=== PATIENT | female | born 1940 | race Two or more races ===

== ENCOUNTER → 2016-04-29 | Outpatient (CLI) | payer MEDICARE, OTHER ==
--- NOTE | 2016-04-29 14:41 | RADRPT ---
PROCEDURE: XR pelvis/right hip. CLINICAL INDICATION: Hip pain TECHNIQUE: AP pelvis/AP and lateral right hip views performed COMPARISON: No prior studies are available for comparison. FINDINGS: There is moderate to severe bilateral hip osteoarthrosis. This is associated with joint space narrow ing, subchondral sclerosis and osteophytosis. There is normal mineralization. No fractures or osse ous lesions are identified. The soft tissues are unremarkable. IMPRESSION: Moderate to severe bilateral hip osteoarthrosis. RPTAT: HGDB .Cholo Rueda MD, MD Date Time Electronically viewed and signed by .Cholo Rueda MD, on 04/29/2016 14:41 .B/
== END | disposition home or self-care (01) ==
LOC: HKI 14:08
PROVIDERS: ATTEND Orthopaedic Surgery
DX: M16.0 Bilateral primary osteoarthritis of hip (principal); M25.551 Pain in right hip
CPT/HCPCS: 73502; G0463

== ENCOUNTER → 2016-06-08 | Outpatient (CLI) | payer MEDICARE, OTHER | END | disposition home or self-care (01) | LOC: HKI 09:54 | PROVIDERS: ATTEND Orthopaedic Surgery | DX: Z01.818 Encounter for other preprocedural examination (principal); M16.11 Unilateral primary osteoarthritis, right hip; M25.551 Pain in right hip | CPT/HCPCS: G0463 ==

== ENCOUNTER 2016-06-14 05:50 | Inpatient (IN) | payer MEDICARE, OTHER ==
[2016-06-13 09:42] VITALS: BMI 29.4
[~2016-06-14] VITALS: Ht 170.2 cm; Wt 85.7 kg
[2016-06-14] VITALS (20 sets, daily range): BP systolic 90–140; BP diastolic 39–66; PULSE 54–62; RESP 8–20; Ht 170.2 cm; Wt 85.7 kg
[2016-06-14] MEDS: LACTATED RINGER'S 1,000 ML IV SCH ×4 (05:00→17:39)
[~2016-06-14 05:50] MED LIST: BUPIVACAINE LIPOSOME/PF 266 MG/20 ML VIAL INFIL ONE; CEFAZOLIN 2GM/50 ML (PMX) 50 ML X1 BEFORE INCISION IVPB ONE; CELECOXIB 400 MG PO X1 DOSE PO ONE; EXPAREL NOTE (BUPIVICAINE LIPOSOMAL) XX SCH; PAIN COCKTAIL-CEFUROXIME IRR ONE; PREGABALIN 300 MG PO X1 PO ONE; TRANEXAMIC ACID 850 MG in SOD CHLORIDE 0.9% 100 ML IVPB ONE; TRANEXAMIC ACID 850 MG in SOD CHLORIDE 0.9% 91.5 ML IV ONE; oxyCODONE (CR) 10 MG TAB [oxyCONTIN] X1 DOSE PO ONE; traMADOL 50 MG TAB X 1 DOSE PO ONE
[2016-06-14] MEDS ORDERED: ESOM40CA PO (06:34)
[2016-06-14] MEDS ORDERED: ATEN1TAB3 PO (06:34)
[2016-06-14] MEDS ORDERED: CRES10 PO (06:51)
[2016-06-14] MEDS ORDERED: FOLI-49 PO (06:51)
[2016-06-14] MEDS ORDERED: ICOS1CAP PO (06:51)
[2016-06-14] MEDS ORDERED: ESCI20TA PO (06:51)
[2016-06-14] MEDS ORDERED: AMLO1TAB12 PO (06:51)
[2016-06-14] MEDS ORDERED: MET25 PO (06:51)
[2016-06-14] MEDS ORDERED: QUET50TA16 PO (06:51)
[2016-06-14] MEDS ORDERED: DONE5TAB7 PO (06:51)
[2016-06-14] MEDS ORDERED: LUTE20CA PO (06:51)
[2016-06-14] MEDS ORDERED: METF500T4 PO (06:51)
[2016-06-14] MEDS ORDERED: CLOP300T15 PO (06:51)
[2016-06-14] MEDS ORDERED: ALLO300T2 PO (06:51)
[2016-06-14] MEDS ORDERED: MEMA28CA PO (06:51)
[2016-06-14] MEDS ORDERED: PRED5 PO ×2 (06:51→09:45)
[2016-06-14] MEDS ORDERED: PROP225T PO (06:51)
[2016-06-14] MEDS ORDERED: PROPOFOL 200 MG INJ ONE (07:00)
[2016-06-14] MEDS ORDERED: SODIUM CL BACTERIOSTATIC 30 ML INJ ONE (07:05)
[2016-06-14] MEDS ORDERED: POLYMYXIN B 500000 UNIT INJ ONE (07:05)
[2016-06-14] MEDS ORDERED: VANCOMYCIN 1 GM INJ ONE (07:05)
[2016-06-14] MEDS ORDERED: GLYCOPYRROLATE 1 MG INJ ONE (07:07)
[2016-06-14] MEDS ORDERED: ETOMIDATE 20 MG INJ ONE (07:07)
[2016-06-14] MEDS ORDERED: NEOSTIGMINE 3 MG/3 ML SYRINGE ONE (07:07)
[2016-06-14] MEDS ORDERED: ONDANSETRON 4 MG INJ ONE (07:07)
[2016-06-14] MEDS ORDERED: LIDOCAINE 100 MG SYRINGE ONE (07:07)
[2016-06-14] MEDS ORDERED: MIDAZOLAM 1 MG/ML 2 ML INJ ONE (07:07)
[2016-06-14] MEDS ORDERED: CEFAZOLIN 1 GM INJ ONE (07:07)
[2016-06-14] MEDS ORDERED: FENTAnyl 50 MCG/ML VIAL ONE (07:07)
[2016-06-14] MEDS ORDERED: PROPOFOL 100 ML ONE (07:07)
[2016-06-14] MEDS ORDERED: DEXAMETHASONE 4 MG/ML 1 ML INJ ONE (07:08)
--- NOTE | 2016-06-14 07:08 | HPN ---
Date/Time of Note Date/Time of Note DATE: 06/14/16 TIME: 07:07 Interval H&P Admission Note Pt. seen H&P reviewed: No system changes No changes from H&P on 06/06/16 by JORDAN Schneider MD Jun 14, 2016 07:08
[2016-06-14] MEDS ORDERED: BACITRACIN 50000 UNITS INJ IRR ONE (08:19)
[2016-06-14] MEDS ORDERED: LABETALOL HCL 20MG INJ IV PRN (08:30)
[2016-06-14] MEDS ORDERED: EPHEDrine SULFATE 50 MG/5 ML SYG IV PRN (08:30)
[2016-06-14] MEDS ORDERED: MIDAZOLAM 1 MG/ML 2 ML INJ IV PRN (08:30)
[2016-06-14] MEDS ORDERED: DIPHENHYDRAMINE 50 MG INJ IV PRN (08:30)
[2016-06-14] MEDS ORDERED: hydrALAzine 20 MG INJ IV PRN (08:30)
[2016-06-14] MEDS ORDERED: HYDROmorphONE (0.2 MG/ML) 10ML SYG IV PRN ×3 (08:30)
[2016-06-14] MEDS ORDERED: TRIMETHOBENZAMIDE 100 MG/ML VIAL IM PRN (08:30)
[2016-06-14] MEDS ORDERED: FENTAnyl 50 MCG/ML VIAL IV PRN ×3 (08:30)
[2016-06-14] MEDS ORDERED: MEPERIDINE 25 MG INJ IV PRN (08:30)
[2016-06-14] MEDS ORDERED: ONDANSETRON 4 MG INJ IV PRN ×2 (08:30→10:00)
--- NOTE | 2016-06-14 09:39 | RADRPT ---
PROCEDURE: Intraoperative imaging of the right hip with fluoroscopy. CLINICAL INDICATION: Right hip pain. Intraoperative. TECHNIQUE: 17 images of the right hip were obtained in the operating room with an image intensifie r. No radiologist was in attendance. 0.5 minutes of fluoroscopy time was used. COMPARISON: 04/29/2016. FINDINGS: Images demonstrate placement of a total right hip arthroplasty. IMPRESSION: 1. Satisfactory intraoperative imaging of the right hip. RPTAT: QQ .Willie Villar MD, MD Date Time Electronically viewed and signed by .Willie Villar MD, MD on 06/14/2016 09:39 .R/
[2016-06-14 09:49] LABS: HEMATOCRIT 28.5 % (37.0-47.0); HEMOGLOBIN 9.5 g/dl (12.0-16.0)
[2016-06-14] MEDS ORDERED: HYDROmorphONE 1 MG/ML SYG IV PRN (10:00)
[2016-06-14] MEDS ORDERED: oxyCODONE 5 MG TAB PO PRN ×2 (10:00)
[2016-06-14] MEDS ORDERED: ASPIRIN (EC) 325 MG TAB PO ONE (10:00)
[2016-06-14] MEDS ORDERED: NA PHOSPHATE/BIPHOS 133 ML ENEMA PR PRN (10:00)
[2016-06-14] MEDS ORDERED: NACL 0.9% 3 ML SYG IV SCH (10:00)
[2016-06-14] MEDS ORDERED: MAGNESIUM HYDROXIDE 30ML CUP PO PRN (10:00)
[2016-06-14] MEDS ORDERED: BISACODYL 10 MG SUPP PR PRN (10:00)
[2016-06-14] MEDS: CEFAZOLIN 2 GM/50 ML (PMX) 50 ML IVPB SCH ×2 (10:05→18:19)
--- NOTE | 2016-06-14 10:07 | PN ---
Date/Time of Note Date/Time of Note DATE: 06/14/16 TIME: 10:00 Assessment/Plan Lines/Catheters IV Catheter Type (from Nrsg): Peripheral IV Assessment/Plan Assessment/Plan Stable in PACU, s/p right anterior EBER -continue antibiotics -pain meds as needed -ASA/SCDs for DVT prophylaxis -OOB with PT -check AM labs -monitor drain -d/c amaro in AM XR of the right hip is pending at this time Subjective 24 Hr Interval Summary Doing well in PACU. Drowsy from anesthesia. Denies pain. Obeying all commands. Exam/Review of Systems Vital Signs Vitals Vital Signs Date Time Temp Pulse Resp B/P Pulse Ox O2 Delivery O2 Flow Rate FiO2 06/14/16 09:45 54 8 92/42 94 Nasal Cannula 2.0 06/14/16 09:42 97.9 Exam Free Text/Dictation Dressing dry Incision clean, dry, and intact without redness or drainage 5/5 Quadriceps, Tibialis Anterior, EHL, Gastroc, Soleus, Peroneals Normal sensation Palpable DT/PT, CR <2 sec No distal edema Results Result Diagram: 06/14/16 0940 DAISY HESTER PA-C Jun 14, 2016 10:07
[2016-06-14 10:17] LABS: POTASSIUM 3.5 mmol/L (3.5-5.1)
[2016-06-14 10:18] LABS: CALCIUM 8.6 mg/dl (8.4-10.2); CREATININE 1.02 mg/dl (0.44-1.00)
--- NOTE | 2016-06-14 10:26 | OPR ---
DATE OF OPERATION: 06/14/2016 PREOPERATIVE DIAGNOSIS: Right hip osteoarthritis. POSTOPERATIVE DIAGNOSIS: Right hip osteoarthritis. OPERATION PERFORMED: Right anterior total hip arthroplasty. SURGEON: Jordan Flowers MD FIRESETTER: LISA Zhu COMPONENTS USED: DePuy size 56 mm Gription Charlotte cup, 56/36 neutral AltrX polyethylene liner, si ze 12 standard Corail stem, 36 +1.5 ceramic head. ANESTHESIA: Spinal plus general endotracheal intubation, plus periarticular injection. ANESTHESIOLOGIST: Campbell Delvalle MD ESTIMATED BLOOD LOSS: 300 mL. INTRAVENOUS FLUIDS: 2100 mL crystalloid. SPECIMENS: Femoral head. DRAINS: Hemovac x1. COMPLICATIONS: None. DISPOSITION: The patient tolerated the procedure well and was taken to the recovery room in stable condition. INDICATIONS: The patient is a 76-year-old woman who has had progressive worsening pain in the [facility] t hip with radiographic evidence of severe osteoarthritis. She has failed nonsurgical means of quentin tment to control her pain including activity modifications, pain medications and ambulatory assist d evices. Despite these measures, she has had worsening pain and I felt she would benefit from a tota l hip arthroplasty through an anterior approach. . The risks, benefits, and alternatives of the procedure were explained in detail to the patient. I e xplained the risks of the surgery to include, but not be limited to: bleeding and possible need for blood transfusion; infection; pain; stiffness; neurovascular injury with possible numbness, weakness , and/or paralysis anywhere from the hip down to the toes; fracture; instability; dislocation; leg l ength inequality; wear and/or loosening of the prosthesis and possible need for future revision; blo od clots; pulmonary embolism; and anesthetic complications such as heart attack, stroke, GI bleed, p neumonia, and/or . Ample time was allowed for the patient to ask questions, all of which were addressed and answered. The patient understood the risks involved and wished to proceed. Informed c onsent was signed prior to the procedure. PROCEDURE: The patient's right hip was initialed with a marking pen in the preoperative area to iden tify the correct operative site. The patient was brought to the operating room and transferred from the [facility] to the [facility] where a spinal anesthetic was administered. The patient was then anesthetized and intubated. A Lr catheter was placed. Both feet were placed into well padd ed boots which were then placed into the leg holders of the traction booms. A timeout was performed to confirm that the right side was the correct operative site. The patient was given 2 g of intrav enous Ancef within one hour prior to the procedure. The operative hip was prepped and draped in the usual sterile fashion. A 10 cm oblique incision was made over the anterior aspect of the hip and carried down through subcu taneous tissue and fat with sharp dissection. The tensor fascia carloz was incised along the length o f the wound. The tensor fascia muscle was retracted laterally and the sartorius medially. The anter ior circumflex vessels were identified and tied off with 2-0 silk suture and coagulated with the [employer] manager. The rectus femoris was elevated off the anterior capsule and an anterior capsu lectomy performed. A femoral neck osteotomy was made and the head removed from the acetabulum. The acetabulum was denuded of cartilage circumferentially, as was the femoral head. Retractors were pl aced around the acetabulum. The remnants of the labrum and ligamentum teres were excised. I reamed the acetabulum to the medial wall and then went into an anatomic position and increased the reamer size in 2 mm increments until I got a good bite and was down to bleeding subchondral bone. The Charlotte cup was opened and impacted into the acetabulum and sat flush circumferentially, gettin g a good bite. C-arm imaging showed it had about 40 to 45 degrees of abduction and 20 degrees of ant eversion. The real liner was opened and impacted into the acetabulum and sat flush circumferentiall y. Attention was turned towards the femur. The operative leg was carefully lowered to the floor with the leg adducted. The foot was then exter chago rotated to approximately 110 degrees. A posteromedial release was performed to optimize expos ure. The femoral hook was placed underneath the proximal femur and the hydraulic lift was then used to elevate the femur up out of the wound. The judith cutter osteotome was used to remove the remai roxy overhanging greater trochanter. The femur was then broached, going up in one size increments u ntil it sat flush with the neck cut and a stable fit was achieved. The trial neck and head were ass embled and reduced into the acetabulum. Fluoroscopic imaging showed the components to be in good pos ition and the leg lengths and offsets to be equal. At this point, the trial was dislocated and the trial broach removed. The canal was irrigated and d ried. The real stem was opened and impacted into the femur. The trunnion was irrigated and dried, a nd the real femoral head was impacted onto the trunnion, and reduced into the acetabulum. The soft tissues were infiltrated with a mixture of 150 mg of 0.5% Bupivacaine, 8 mg of Duramorph, 3 00 mcg of epinephrine, 30 mg of Toradol, 100 mcg of clonidine, 750 mg of cefuroxime and 86 mL of nor mal saline, followed by an injection of 266 mg of liposomal Bupivacaine. At this point the hip was irrigated with a mixture of Betadine/saline and then antibiotic saline with pulsatile lavage. A Hem ovac drain was placed in the deep portion of the wound and brought out the anterolateral thigh. Ther e was good hemostasis. The tensor fascia carloz was repaired with a running #1 Vicryl. The deep fat layer was irrigated and closed with 2-0 Stratafix and the subcutaneous layer closed with 3-0 Vicryl and the skin was closed with art and then sealed with Dermabond. The drain was secured with 3-0 nylon. The sponge and needle counts were correct at the end of the case. The wound was covered with an occ lusive dressing. The patient was awakened, extubated, and taken to the recovery room in stable cond ition. Dictated By: JORDAN ROBLES/DEANNA Conf#: [id number] DID#: [id number]
--- NOTE | 2016-06-14 10:44 | RADRPT ---
PROCEDURE: XR Pelvis. CLINICAL INDICATION: Recent right hip arthroplasty TECHNIQUE: Single AP view of the pelvis. COMPARISON: 04/29/2016 FINDINGS: There is a recent right hip arthroplasty in place with anatomic alignment. No acute fracture or dis location is seen. Postsurgical skin art, soft tissue drain, and soft tissue gas is seen. Remai nder of the pelvis appears intact without evidence of fractures or dislocation. Moderate osteoarthr itis is seen at the left hip joint.. Sacroiliac joints and pubic symphysis are unremarkable. IMPRESSION: Recent right hip arthroplasty. Moderate osteoarthritis of the left hip. RPTAT: VV .Tomas Ayala MD, MD Date Time Electronically viewed and signed by .Tomas Ayala MD, on 06/14/2016 10:43 .L/
--- NOTE | 2016-06-14 10:46 | RADRPT ---
PROCEDURE: Right hip series CLINICAL INDICATION: Right hip arthroplasty TECHNIQUE: Single AP view of the right hip is submitted COMPARISON: 06/14/2016 FINDINGS: There has been recent right hip arthroplasty with anatomic alignment. No evidence of fractures or d islocation.. Postsurgical changes with skin art, soft tissue drain and soft tissue gas are prese nt. Visualized portions of the pelvis are intact. IMPRESSION: Recent right hip arthroplasty. RPTAT: VV .Tomas Ayala MD, MD Date Time Electronically viewed and signed by .Tomas Ayala MD, MD on 06/14/2016 10:45 .L/
[2016-06-14] MEDS ORDERED: DIPHENHYDRAMINE 25 MG CAP PO PRN (11:13)
--- NOTE | 2016-06-14 12:14 | OPR ---
Date/Time of Note Date/Time of Note DATE: 06/14/16 TIME: 12:13 Operative Report Free Text/Dictation Dictation # [id number] Procedure Date: Jun 14, 2016 Preoperative Diagnosis Right Hip OA Postoperative Diagnosis Same Surgeon: JORDAN CHAMORRO MD computer assistant: DAISY HESTER PA-C Anesthesia: general, spinal Anesthesiologist: Campbell Delvalle M.D. Estimated Blood Loss: 250 - 300 ml's Specimens Femoral Head Tubes/Drains Hemovac x 1 Complications: None Pt Condition Post Procedure: stable Disposition: PACU JORDAN CHAMORRO MD Jun 14, 2016 12:14
[2016-06-14] MEDS ORDERED: TRANEXAMIC ACID 860 MG in SOD CHLORIDE 0.9% 100 ML IVPB ONE ×2 (13:00→16:00)
[2016-06-14] MEDS: ACETAMINOPHEN 1000MG/100ML IV 100 ML IVPB SCH ×2 (13:18→18:15)
[2016-06-14] MEDS: traMADol 50 MG TAB PO SCH ×2 (13:21→17:40)
[2016-06-14] MEDS: AMLODIPINE 2.5 MG TAB PO SCH ×2 (13:25→21:09)
[2016-06-14] MEDS: ATENOLOL 25 MG TAB PO SCH ×2 (13:26→21:09)
[2016-06-14] MEDS ORDERED: DEXTROSE 50% 50 ML SYRINGE IV PRN ×2 (13:30)
[2016-06-14] MEDS ORDERED: GLUCOSE GEL 15 GRAM TUBE BUCCAL PRN (13:30)
[2016-06-14] MEDS ORDERED: GLUCAGON 1 MG INJ IM PRN (13:30)
[2016-06-14] MEDS ORDERED: GLUCOSE GEL 15 GRAM TUBE PO PRN ×2 (13:30)
--- NOTE | 2016-06-14 14:11 | CONS ---
DATE OF ADMISSION: 06/14/2016 DATE OF CONSULTATION: 06/14/2016 POSTOPERATIVE MEDICAL CONSULTATIVE NOTE Dear Dr. Flowers: Thank you very much for allowing me to evaluate the above patient who just underwent right total hip replacement. HISTORICAL EVENTS: As you well know, this patient has had progressive disabling pain involving her right knee and elected to proceed with surgery. Postoperatively via my discussion with the family, as she does not speak Polish, she is comfortable and has not complained of shortness of breath, cou gh, wheezing, nausea, vomiting, abdominal or chest pain. PAST MEDICAL HISTORY INCLUDES: 1. Degenerative arthritis. 2. Depression. 3. Impaired cognition. 4. History of asthma. 5. History of type 2 diabetes. 6. Hypertension. SOCIAL HISTORY: Does not smoke. ALLERGIES: NONE. MEDICATIONS: 1. Allopurinol 300 per day. 2. Amlodipine 5 mg per day. 3. Atenolol/chlorthalidone 50/25 one per day. 4. Benazepril 5 mg per day. 7. Folic acid 1 mg per day. 8. Lexapro 10 mg per day. 9. Metformin 500 mg b.i.d. 10. Namenda XR 28 mg daily. 11. Omeprazole 20 per day. 12. Plavix 75 mg per day. 13. Prednisolone 5 per day. 14. Crestor 20 mg per day. 15. Rythmol 150 mg daily. 16. Seroquel 50 mg per day. 17. Vascepa 1 gram b.i.d. PHYSICAL EXAMINATION: GENERAL: Reveals a comfortable-appearing female in no acute distress. VITAL SIGNS: BP 120/80, pulse 70, respirations 20, she was afebrile. EYES: Extraocular muscles were full. NOSE, MOUTH, AND THROAT: Normal. NECK: Supple. There was no jugular venous distention, thyroid enlargement or adenopathy. LUNGS: Clear. HEART: Rhythm regular, I/ systolic murmur. No third or fourth sound. ABDOMEN: Nontender. Liver and spleen were not palpable. No masses or tenderness were noted. EXTREMITIES: No edema. NEUROLOGIC: No lateralizing motor weakness. IMPRESSION: 1. Stable postoperative right hip replacement. 2. History of hypertension, to continue antihypertensive therapy and monitor BP throughout. 3. Will evaluate daily for signs and symptoms of thromboembolic disease despite an appropriate deep venous thrombosis prophylaxis. 4. History of rheumatoid arthritis to continue prednisone daily. Dictated By: WILMAN SMITH MD MR/DEANNA Conf#: [id number] DID#: [id number]
[2016-06-14] MEDS ORDERED: BACITRACIN 50000 UNITS INJ ONE (15:14)
[2016-06-14] MEDS: INSULIN ASPART [NOVOLOG] 3 ML PEN SC SCH (17:30)
[2016-06-14] MEDS: PANTOPRAZOLE (EC) 40 MG TAB PO SCH (17:39)
[2016-06-14] MEDS: ATORVASTATIN 40 MG TAB PO SCH (21:09)
[2016-06-14] MEDS: PREGABALIN 25 MG CAP PO SCH (21:09)
[2016-06-14] MEDS: MEMANTINE 10 MG TAB PO SCH (21:09)
[2016-06-14] MEDS: NITROFURANTOIN (SR) 100 MG CAP PO SCH (21:10)
[2016-06-14] MEDS: DOCUSATE SODIUM 100 MG CAP PO SCH (21:10)
[2016-06-15] VITALS: BP 122/58; PULSE 77; RESP 18
[2016-06-15] MEDS: ACETAMINOPHEN 1000MG/100ML IV 100 ML IVPB SCH ×2 (00:23→04:53)
[2016-06-15] MEDS: traMADol 50 MG TAB PO SCH ×5 (00:23→23:16)
[2016-06-15] MEDS: LACTATED RINGER'S 1,000 ML IV SCH ×6 (00:41→21:00)
[2016-06-15] MEDS: CEFAZOLIN 2 GM/50 ML (PMX) 50 ML IVPB SCH (01:40)
[2016-06-15] MEDS: PANTOPRAZOLE (EC) 40 MG TAB PO SCH ×2 (04:53→17:49)
[2016-06-15 05:26] VITALS: BP 134/62; PULSE 67; RESP 19
[2016-06-15 06:14] LABS: PHOSPHORUS 3.7 mg/dl (2.5-4.9)
[2016-06-15 06:15] LABS: MAGNESIUM 1.3 mg/dl (1.7-2.5)
[2016-06-15 06:19] LABS: CALCIUM 8.5 mg/dl (8.4-10.2); CREATININE 1.28 mg/dl (0.44-1.00)
[2016-06-15] MEDS: INSULIN ASPART [NOVOLOG] 3 ML PEN SC SCH ×3 (07:30→17:54)
--- NOTE | 2016-06-15 08:05 | PN ---
Date/Time of Note Date/Time of Note DATE: 06/15/16 TIME: 08:02 Assessment/Plan VTE Prophylaxis VTE Prophylaxis Intervention: other Lines/Catheters IV Catheter Type (from Nrs): Peripheral IV Urinary Cath still in place: Yes Reason Cath still needed: urinary retention Assessment/Plan Assessment/Plan 1. S/P right hip replacement, doing well 2. Mild acute renal failure likely sec to vol depletion 3. Anemia, reasonable to transfuse 2 units if ok with ortho 4. Hx elev BP, controlled (without ARB) 5. Low mag, will replete Subjective 24 Hr Interval Summary Respiratory: No shortness of breath Cardiovascular: No edema Gastrointestinal: no complaints Genitourinary: other (foely in place) Musculoskeletal: bone/joint pain (mild right hip pain) Exam/Review of Systems Vital Signs Vitals Vital Signs Date Time Temp Pulse Resp B/P Pulse Ox O2 Delivery O2 Flow Rate FiO2 06/15/16 05:26 98.5 67 19 134/62 99 Nasal Cannula 2.0 Intake and Output 06/14/16 06/14/16 06/15/16 15:00 23:00 07:00 Intake Total 2708.5 ml 1500 ml Output Total 545 ml 1000 ml Balance 2163.5 ml 500 ml Exam Neck: No jvd Respiratory: clear to auscultation Cardiovascular: regular rate and rhythm Gastrointestinal: soft Extremities: No edema (and no calf tend) Results Result Diagram: 06/15/16 0525 06/15/16 0525 Results 24 hrs Laboratory Tests Test 06/14/16 09:40 06/14/16 10:08 06/14/16 17:35 06/15/16 05:25 Anion Gap 17 H 16 Blood Urea Nitrogen 23 H 25 H Calcium Level 8.6 8.5 Carbon Dioxide Level 27 25 Chloride Level 102 97 Creatinine 1.02 H 1.28 H Glucose Level 91 147 # Hematocrit 28.5 L 24.0 L Hemoglobin 9.5 L 8.0 L Potassium Level 3.5 4.0 Sodium Level 142 134 L Bedside Glucose 93 201 Magnesium Level 1.3 L Phosphorus Level 3.7 Medications Medications Current Medications Lactated Ringer's (Lr) 1,000 ml @ 100 mls/hr Q10H IV ; Start 06/14/16 at 05:00 Miscellaneous Information 1 ea NOTE XX ; Start 06/14/16 at 05:00; Stop 06/18/16 at 04:59 Donepezil HCl (Aricept) 5 mg DAILY PO ; Start 06/15/16 at 09:00 Escitalopram Oxalate (Lexapro) 20 mg DAILY PO ; Start 06/15/16 at 09:00 Propafenone HCl (Rythmol) 150 mg DAILY PO ; Start 06/15/16 at 09:00 Quetiapine Fumarate (Seroquel) 50 mg DAILY PO ; Start 06/15/16 at 09:00 Memantine (Namenda) 10 mg BID PO Last administered on 06/14/16 21:09; Admin Dose 10 MG; Start 06/14/16 at 21:00 Atorvastatin Calcium 40 mg 40 mg QHS PO Last administered on 06/14/16 21:09; Admin Dose 40 MG; Start 06/14/16 at 21:00 Lactated Ringer's 1,000 ml @ 125 mls/hr Q8H IV Last administered on 06/15/16 01:41; Admin Dose 125 MLS/HR; Start 06/14/16 at 09:33 Acetaminophen (Ofirmev 1000mg/ 100ml Iv) 100 ml @ 400 mls/hr Q6 IVPB Last administered on 06/15/16 04:53; Admin Dose 400 MLS/HR; Start 06/14/16 at 12:00 ; Stop 06/15/16 at 11:59 Tramadol HCl (Ultram) 50 mg Q6 PO Last administered on 06/15/16 04:54; Admin Dose 50 MG; Start 06/14/16 at 12:00; Stop 06/17/16 at 11:59 Oxycodone HCl (Roxicodone) 5 mg Q4H PRN PO PAIN LEVEL 1-3; Start 06/14/16 at 10 :00 Oxycodone HCl (Roxicodone) 10 mg Q4H PRN PO PAIN LEVEL 4-7; Start 06/14/16 at 10:00 Hydromorphone HCl (Dilaudid) 1 mg Q3H PRN IV PAIN LEVEL 8-10; Start 06/14/16 at 10:00 Ondansetron HCl (Zofran Inj) 4 mg Q6H PRN IV NAUSEA AND/OR VOMITING; Start at 10:00 Bisacodyl (Dulcolax Supp) 10 mg Q12H PRN [place] CONSTIPATION; Start 06/14/16 at 10: 00 Magnesium Hydroxide (Milk Of Mag) 30 ml BID PRN PO CONSTIPATION; Start at 10:00 Sodium Biphosphate/ Sodium Phosphate (Fleet Enema) 133 ml DAILY PRN [place] CONSTIPATION; Start 06/14/16 at 10:00 Docusate Sodium (Colace) 100 mg BID PO Last administered on 06/14/16 21:10; Admin Dose 100 MG; Start 06/14/16 at 21:00 Diphenhydramine HCl (Benadryl) 25 mg Q6H PRN PO PRURITUS; Start 06/14/16 at 11: 13 Aspirin (Ecotrin) 325 mg BID PO ; Start 06/15/16 at 09:00 Pregabalin (Lyrica) 50 mg BID PO Last administered on 06/14/16 21:09; Admin Dose 50 MG; Start 06/14/16 at 21:00 Pantoprazole (Protonix Tab) 40 mg BID@,18 PO Last administered on 06/15/16 04:53; Admin Dose 40 MG; Start 06/14/16 at 18:00 Nitrofurantoin Macrocrystals (Macrobid) 100 mg BID PO Last administered on 06/14 21:10; Admin Dose 100 MG; Start 06/14/16 at 21:00 Prednisone (Prednisone) 5 mg DAILY PO ; Start 06/15/16 at 09:00 Allopurinol (Zyloprim) 300 mg DAILY PO ; Start 06/15/16 at 09:00 Amlodipine Besylate (Norvasc) 2.5 mg BID PO Last administered on 06/14/16 21: 09; Admin Dose 2.5 MG; Start 06/14/16 at 13:30 Atenolol (Tenormin) 25 mg BID PO Last administered on 06/14/16 21:09; Admin Dose 25 MG; Start 06/14/16 at 13:30 Escitalopram Oxalate (Lexapro) 10 mg DAILY PO ; Start 06/15/16 at 09:00 Miscellaneous Information 1 ea NOTE XX ; Start 06/14/16 at 13:30 Glucose (Glutose) 15 gm Q15M PRN PO DECREASED GLUCOSE; Start 06/14/16 at 13:30 Glucose (Glutose) 22.5 gm Q15M PRN PO DECREASED GLUCOSE; Start 06/14/16 at 13: 30 Dextrose (D50w Syringe) 25 ml Q15M PRN IV DECREASED GLUCOSE; Start 06/14/16 at 13:30 Dextrose (D50w Syringe) 50 ml Q15M PRN IV DECREASED GLUCOSE; Start 06/14/16 at 13:30 Glucagon (Glucagen) 1 mg Q15M PRN IM DECREASED GLUCOSE; Start 06/14/16 at 13:30 Glucose (Glutose) 15 gm Q15M PRN BUCCAL DECREASED GLUCOSE; Start 06/14/16 at 13 :30 WILMAN SMITH MD Jun 15, 2016 08:05
[2016-06-15 08:20] VITALS: BP 137/63; RESP 18
[2016-06-15] MEDS ORDERED: QUETIAPINE 25 MG TAB PO SCH (09:00)
[2016-06-15] MEDS: NITROFURANTOIN (SR) 100 MG CAP PO SCH ×2 (09:00→20:12)
[2016-06-15] MEDS: DOCUSATE SODIUM 100 MG CAP PO SCH ×2 (09:00→20:12)
[2016-06-15] MEDS ORDERED: ESCITALOPRAM 10 MG TAB PO SCH (09:00)
[2016-06-15] MEDS: PREGABALIN 25 MG CAP PO SCH ×2 (09:01→20:06)
[2016-06-15] MEDS: AMLODIPINE 2.5 MG TAB PO SCH ×2 (09:01→20:10)
[2016-06-15] MEDS: metFORMIN 500 MG TAB PO SCH (09:02)
[2016-06-15] MEDS: ALLOPURINOL 300 MG TAB PO SCH (09:02)
[2016-06-15] MEDS: ASPIRIN (EC) 325 MG TAB PO SCH ×2 (09:02→20:06)
[2016-06-15] MEDS: PROPAFENONE 150 MG TAB PO SCH (09:02)
[2016-06-15] MEDS: DONEPEZIL 5 MG TAB PO SCH (09:03)
[2016-06-15] MEDS: ATENOLOL 25 MG TAB PO SCH ×2 (09:03→20:07)
[2016-06-15] MEDS: MEMANTINE 10 MG TAB PO SCH ×2 (09:03→20:07)
[2016-06-15] MEDS: predniSONE 5 MG TAB PO SCH (09:04)
[2016-06-15] MEDS: ESCITALOPRAM 10 MG TAB PO SCH (09:04)
--- NOTE | 2016-06-15 09:05 | PN ---
Date/Time of Note Date/Time of Note DATE: 06/15/16 TIME: 09:03 Assessment/Plan Lines/Catheters IV Catheter Type (from Nrsg): Peripheral IV Lr in Place (from Nrsg): Yes Assessment/Plan Assessment/Plan Stable with low H&H, POD #1, s/p right anterior EBER -d/c abx -pain meds prn -OOB with PT -ASA/SCDs for DVT prophylaxis -transfuse 2 units PRBCs per hospitalist -drain removed -check AM labs -d/c planning. Will plan to go home versus SNF upon discharge Subjective 24 Hr Interval Summary No acute overnight events. Did not start PT due to being drowsy from anesthesia yesterday. Denies pain. H&H low and will require transfusion. VSS, afebrile. Exam/Review of Systems Vital Signs Vitals Vital Signs Date Time Temp Pulse Resp B/P Pulse Ox O2 Delivery O2 Flow Rate FiO2 06/15/16 08:20 98.9 70 18 137/63 99 06/15/16 05:26 Nasal Cannula 2.0 Intake and Output 06/14/16 06/14/16 06/15/16 15:00 23:00 07:00 Intake Total 2708.5 ml 1500 ml Output Total 545 ml 1000 ml Balance 2163.5 ml 500 ml Exam Free Text/Dictation Hemovac: 20cc Dressing dry Incision clean, dry, and intact without redness or drainage 5/5 Quadriceps, Tibialis Anterior, EHL, Gastroc, Soleus, Peroneals Normal sensation Palpable DT/PT, CR <2 sec No distal edema Results Result Diagram: 06/15/16 0525 06/15/16 0525 DIASY HESTER PA-C Jun 15, 2016 09:05
[2016-06-15] MEDS ORDERED: MAGNESIUM SULFATE 3 GM in SOD CHLORIDE 0.9% 100 ML IVPB SCH (09:30)
[2016-06-15 10:30] LABS: ADD UMIC NO; URINE BILIRUBIN (Dip) NEGATIVE (NEGATIVE); URINE BLOOD (Dip) NEGATIVE (NEGATIVE); URINE COLOR LT. YELLOW (YELLOW); URINE GLUCOSE (Dip) NEGATIVE (NEGATIVE); URINE KETONES (Dip) NEGATIVE (NEGATIVE); URINE LEUKOCYTE ESTERASE (Dip) NEGATIVE (NEGATIVE); URINE NITRITE (Dip) NEGATIVE (NEGATIVE); URINE TOTAL PROTEIN (Dip) NEGATIVE (NEGATIVE); URINE UROBILINOGEN (Dip) 0.2 E.U./dL (0.1-1.0)
[2016-06-15 19:00] VITALS: BP 116/57; RESP 18
[2016-06-15] MEDS: ATORVASTATIN 40 MG TAB PO SCH (20:06)
[2016-06-16] MEDS: LACTATED RINGER'S 1,000 ML IV SCH ×3 (01:33→17:33)
[2016-06-16] MEDS: traMADol 50 MG TAB PO SCH (04:56)
[2016-06-16 05:06] VITALS: BP 120/56; PULSE 74; RESP 18
[2016-06-16 05:19] LABS: HEMATOCRIT 31.1 % (37.0-47.0); HEMOGLOBIN 10.6 g/dl (12.0-16.0)
[2016-06-16 05:29] LABS: MAGNESIUM 1.7 mg/dl (1.7-2.5); PHOSPHORUS 2.3 mg/dl (2.5-4.9)
[2016-06-16] MEDS: PANTOPRAZOLE (EC) 40 MG TAB PO SCH ×2 (05:43→18:27)
[2016-06-16 05:47] LABS: POTASSIUM 3.6 mmol/L (3.5-5.1)
[2016-06-16 05:49] LABS: CREATININE 0.93 mg/dl (0.44-1.00)
--- NOTE | 2016-06-16 07:16 | PDOCDIS ---
Discharge Instructions DIAGNOSIS Discharge Diagnosis: s/p right anterior EBER CONDITION Patient Condition: Good HOME CARE INSTRUCTIONS: Diet Instructions: Regular ACTIVITY: Activity Restrictions: Slowly Increase Activity Rest between Activity Avoid heavy lifting Do not operate Machinery Do not operate Power Tool Avoid Heavy Housework Keep Limb Elevated Bathing Restrictions: Shower FOLLOW UP/APPOINTMENTS Appointments follow up in the office in 1 week OTHER ORDERS: Other Orders: S/P Anterior EBER Physical Therapy: Three times per week at home x 2 weeks Daily in Rehab/SNF WB STATUS: WBAT Strengthening exercises for both upper and un-operated lower extremities. 1. Gait training with front wheeled walker 2. Wide base gait, no pivot turns. 3. Abductor strengthening. 4. Quadriceps and hamstring strengthening. 5. May switch to cane in contra lateral hand 6 weeks after surgery. 6. Physical Therapy can open case if nursing is not available. 7. Ice Packs while at rest to surgical wound for 20 minutes, 3 times/day. 8. Patient requires mobile SCDs to reduce risk of developing DVT following EBER. Patient will use the mobile SCDs for 30 days postoperatively. Hip Precautions: No posterior hip precautions. Bathing assistance by home health aide twice weekly if Medicare patient. Occupational Therapy: Evaluation for assistive devices and ADL training. Wound Care: Keep incision dry & covered with Tegaderm until first visit with Dr. Flowers Anticoagulation Orders: Enteric Coated Aspirin 325 mg po bid x 6 weeks from date of surgery Follow-up:Call for an appointment with Dr. Flowers in 1 week after discharged from hospital at DME Orders: RAMONA, 3-in-1 Commode, Mobile SCDs DAISY HESTER PA-C Jun 16, 2016 07:15
[2016-06-16] MEDS ORDERED: ASPI325T32 PO (07:18)
[2016-06-16] MEDS ORDERED: TRAM50TA2 PO (07:18)
[2016-06-16] MEDS: INSULIN ASPART [NOVOLOG] 3 ML PEN SC SCH ×3 (07:30→17:30)
[2016-06-16 08:08] VITALS: BP 109/63; RESP 14
--- NOTE | 2016-06-16 08:29 | CONS ---
Date/Time of Note Date/Time of Note DATE: 06/16/16 TIME: 08:27 Assessment/Plan Assessment/Plan Additional Assessment/Plan 1. Doing well right hip replacement 2. Mild confusion sec to pain meds, will rev with ortho 3. Sl low P, will replete 4. BP is controlled Consultation Date/Type/Reason Admit Date/Time Jun 14, 2016 at 05:50 Initial Consult Date Detailed Summary Respiratory: No cough, No shortness of breath Cardiovascular: No chest pain, No lightheadedness Gastrointestinal: no complaints Genitourinary: no complaints Musculoskeletal: bone/joint pain (mild right hip pain) Neurologic: other (family reports pt was confused last night after pain meds, she is less confused now) Exam/Review of Systems Vital Signs Vitals Vital Signs Date Time Temp Pulse Resp B/P Pulse Ox O2 Delivery O2 Flow Rate FiO2 06/16/16 08:08 97.7 70 14 109/63 100 06/16/16 05:06 Nasal Cannula 2.0 Intake and Output 06/15/16 06/15/16 06/16/16 15:00 23:00 07:00 Intake Total 500 ml 1571 ml 1970 ml Output Total 4200 ml 1500 ml Balance 500 ml -2629 ml 470 ml Exam Neck: No jvd Respiratory: clear to auscultation Cardiovascular: regular rate and rhythm Gastrointestinal: soft Extremities: No edema (and no calf tend) Neurological: No focal weakness Results Result Diagram: 06/16/16 0455 06/16/16 0455 Results 24 hrs Laboratory Tests Test 06/15/16 12:04 06/15/16 17:09 06/16/16 04:55 06/16/16 08:11 Bedside Glucose 135 268 H 96 Hemoglobin 10.6 #L Hematocrit 31.1 #L Sodium Level 141 Potassium Level 3.6 Chloride Level 101 Carbon Dioxide Level 29 Anion Gap 15 Blood Urea Nitrogen 18 Creatinine 0.93 Glucose Level 102 # Calcium Level 9.0 Phosphorus Level 2.3 #L Magnesium Level 1.7 Medications Medications Current Medications Lactated Ringer's (Lr) 1,000 ml @ 100 mls/hr Q10H IV ; Start 06/14/16 at 05:00 Miscellaneous Information 1 ea NOTE XX ; Start 06/14/16 at 05:00; Stop 06/18/16 at 04:59 Donepezil HCl (Aricept) 5 mg DAILY PO Last administered on 3/22/17at 09:03; Admin Dose 5 MG; Start 06/15/16 at 09:00 Escitalopram Oxalate (Lexapro) 20 mg DAILY PO Last administered on 06/15/16 09 :01; Admin Dose 20 MG; Start 06/15/16 at 09:00 Propafenone HCl (Rythmol) 150 mg DAILY PO Last administered on 06/15/16 09:02 ; Admin Dose 150 MG; Start 06/15/16 at 09:00 Quetiapine Fumarate (Seroquel) 50 mg DAILY PO Last administered on 06/15/16 09 :04; Admin Dose 50 MG; Start 06/15/16 at 09:00 Memantine (Namenda) 10 mg BID PO Last administered on 06/15/16 20:07; Admin Dose 10 MG; Start 06/14/16 at 21:00 Atorvastatin Calcium 40 mg 40 mg QHS PO Last administered on 06/15/16 20:06; Admin Dose 40 MG; Start 06/14/16 at 21:00 Lactated Ringer's (Lr) 1,000 ml @ 125 mls/hr Q8H IV Last administered on 12:59; Admin Dose 125 MLS/HR; Start 06/14/16 at 09:33 Tramadol HCl (Ultram) 50 mg Q6 PO Last administered on 06/16/16 04:56; Admin Dose 50 MG; Start 06/14/16 at 12:00; Stop 06/17/16 at 11:59 Oxycodone HCl (Roxicodone) 5 mg Q4H PRN PO PAIN LEVEL 1-3 Last administered on 06/16/16 00:54; Admin Dose 5 MG; Start 06/14/16 at 10:00 Oxycodone HCl (Roxicodone) 10 mg Q4H PRN PO PAIN LEVEL 4-7; Start 06/14/16 at 10:00 Hydromorphone HCl (Dilaudid) 1 mg Q3H PRN IV PAIN LEVEL 8-10; Start 06/14/16 at 10:00 Ondansetron HCl (Zofran Inj) 4 mg Q6H PRN IV NAUSEA AND/OR VOMITING Last administered on 06/15/16 10:14; Admin Dose 4 MG; Start 06/14/16 at 10:00 Bisacodyl (Dulcolax Supp) 10 mg Q12H PRN [place] CONSTIPATION; Start 06/14/16 at 10: 00 Magnesium Hydroxide (Milk Of Mag) 30 ml BID PRN PO CONSTIPATION; Start at 10:00 Sodium Biphosphate/ Sodium Phosphate (Fleet Enema) 133 ml DAILY PRN [place] CONSTIPATION; Start 06/14/16 at 10:00 Docusate Sodium (Colace) 100 mg BID PO Last administered on 06/15/16 20:12; Admin Dose 100 MG; Start 06/14/16 at 21:00 Diphenhydramine HCl (Benadryl) 25 mg Q6H PRN PO PRURITUS; Start 06/14/16 at 11: 13 Aspirin (Ecotrin) 325 mg BID PO Last administered on 06/15/16 20:06; Admin Dose 325 MG; Start 06/15/16 at 09:00 Pregabalin (Lyrica) 50 mg BID PO Last administered on 06/15/16 20:06; Admin Dose 50 MG; Start 06/14/16 at 21:00 Pantoprazole (Protonix Tab) 40 mg BID@,18 PO Last administered on 06/16/16 05:43; Admin Dose 40 MG; Start 06/14/16 at 18:00 Nitrofurantoin Macrocrystals (Macrobid) 100 mg BID PO Last administered on 06/15 20:12; Admin Dose 100 MG; Start 06/14/16 at 21:00 Prednisone (Prednisone) 5 mg DAILY PO Last administered on 06/15/16 09:04; Admin Dose 5 MG; Start 06/15/16 at 09:00 Allopurinol (Zyloprim) 300 mg DAILY PO Last administered on 06/15/16 09:02; Admin Dose 300 MG; Start 06/15/16 at 09:00 Amlodipine Besylate (Norvasc) 2.5 mg BID PO Last administered on 06/15/16 09: 01; Admin Dose 2.5 MG; Start 06/14/16 at 13:30 Atenolol (Tenormin) 25 mg BID PO Last administered on 06/15/16 20:07; Admin Dose 25 MG; Start 06/14/16 at 13:30 Escitalopram Oxalate (Lexapro) 10 mg DAILY PO Last administered on 06/15/16t 09 :04; Admin Dose 10 MG; Start 06/15/16 at 09:00 Miscellaneous Information 1 ea NOTE XX ; Start 06/14/16 at 13:30 Glucose (Glutose) 15 gm Q15M PRN PO DECREASED GLUCOSE; Start 06/14/16 at 13:30 Glucose (Glutose) 22.5 gm Q15M PRN PO DECREASED GLUCOSE; Start 06/14/16 at 13: 30 Dextrose (D50w Syringe) 25 ml Q15M PRN IV DECREASED GLUCOSE; Start 06/14/16 at 13:30 Dextrose (D50w Syringe) 50 ml Q15M PRN IV DECREASED GLUCOSE; Start 06/14/16 at 13:30 Glucagon (Glucagen) 1 mg Q15M PRN IM DECREASED GLUCOSE; Start 06/14/16 at 13:30 Glucose (Glutose) 15 gm Q15M PRN BUCCAL DECREASED GLUCOSE; Start 06/14/16 at 13 :30 WILMAN SMITH MD Jun 16, 2016 08:28
[2016-06-16] MEDS ORDERED: POTASSIUM PHOSPHATE 20 MEQ in SOD CHLORIDE 0.9% 250 ML IVPB ONE (08:30)
[2016-06-16] MEDS ORDERED: MAGNESIUM SULFATE 2 GM/50 ML 50 ML IVPB ONE (08:30)
[2016-06-16] MEDS: AMLODIPINE 2.5 MG TAB PO SCH ×2 (09:00→21:35)
[2016-06-16] MEDS: ATENOLOL 25 MG TAB PO SCH (09:00)
[2016-06-16] MEDS: PREGABALIN 25 MG CAP PO SCH ×2 (09:45→21:32)
[2016-06-16] MEDS: ASPIRIN (EC) 325 MG TAB PO SCH ×2 (09:46→21:32)
[2016-06-16] MEDS: ALLOPURINOL 300 MG TAB PO SCH (09:46)
[2016-06-16] MEDS: metFORMIN 500 MG TAB PO SCH (09:46)
[2016-06-16] MEDS: ESCITALOPRAM 10 MG TAB PO SCH (09:46)
[2016-06-16] MEDS: PROPAFENONE 150 MG TAB PO SCH (09:46)
[2016-06-16] MEDS: MEMANTINE 10 MG TAB PO SCH ×2 (09:46→21:34)
[2016-06-16] MEDS: predniSONE 5 MG TAB PO SCH (09:47)
[2016-06-16] MEDS: DOCUSATE SODIUM 100 MG CAP PO SCH ×2 (09:47→21:32)
[2016-06-16] MEDS: DONEPEZIL 5 MG TAB PO SCH (09:47)
[2016-06-16] MEDS: NITROFURANTOIN (SR) 100 MG CAP PO SCH ×2 (09:51→21:33)
[2016-06-16] MEDS ORDERED: traMADol 50 MG TAB PO PRN (13:30)
--- NOTE | 2016-06-16 13:58 | PN ---
Date/Time of Note Date/Time of Note DATE: 06/16/16 TIME: 13:56 Assessment/Plan Lines/Catheters IV Catheter Type (from Nrsg): Peripheral IV Lr in Place (from Nrsg): No Assessment/Plan Assessment/Plan Stable POD #2, s/p right anterior EBER -pain meds prn only. Will plan to use tramadol for pain control. Discontinue oxycodone -ASA/SCDs for DVT prophylaxis -OOB with PT -dressing changed -check AM labs -d/c planning. Will plan to go to [facility] upon discharge Subjective 24 Hr Interval Summary No acute overnight events. Patient is still very drowsy from pain medication. Denies any hip pain. VSS, afebrile. Will need to go to SNF upon discharge. Exam/Review of Systems Vital Signs Vitals Vital Signs Date Time Temp Pulse Resp B/P Pulse Ox O2 Delivery O2 Flow Rate FiO2 06/16/16 08:08 97.7 70 14 109/63 100 06/16/16 05:06 Nasal Cannula 2.0 Intake and Output 06/15/16 06/15/16 06/16/16 15:00 23:00 07:00 Intake Total 500 ml 1571 ml 1970 ml Output Total 4200 ml 1500 ml Balance 500 ml -2629 ml 470 ml Exam Free Text/Dictation Dressing dry Incision clean, dry, and intact without redness or drainage 5/5 Quadriceps, Tibialis Anterior, EHL, Gastroc, Soleus, Peroneals Normal sensation Palpable DT/PT, CR <2 sec No distal edema Results Result Diagram: 06/16/16 0455 06/16/16 0455 DAISY HESTER PA-C Jun 16, 2016 13:58
[2016-06-16 16:15] VITALS: BP 130/63; PULSE 68; RESP 20
[2016-06-16] MEDS ORDERED: QUETIAPINE 25 MG TAB PO SCH (21:00)
[2016-06-16] MEDS: ATORVASTATIN 40 MG TAB PO SCH (21:33)
[2016-06-16 22:18] VITALS: BP 124/58; RESP 20
[2016-06-17] MEDS: LACTATED RINGER'S 1,000 ML IV SCH (01:33)
[2016-06-17 05:18] LABS: POTASSIUM 3.6 mmol/L (3.5-5.1)
[2016-06-17 05:19] LABS: HEMATOCRIT 31.6 % (37.0-47.0); HEMOGLOBIN 10.7 g/dl (12.0-16.0)
[2016-06-17 05:20] LABS: CREATININE 0.95 mg/dl (0.44-1.00)
[2016-06-17 05:22] LABS: MAGNESIUM 1.6 mg/dl (1.7-2.5); PHOSPHORUS 2.9 mg/dl (2.5-4.9)
[2016-06-17] MEDS: PANTOPRAZOLE (EC) 40 MG TAB PO SCH ×2 (06:00→17:06)
[2016-06-17 07:20] VITALS: BP 112/58; PULSE 63; RESP 17
[2016-06-17] MEDS: ATENOLOL 25 MG TAB PO SCH ×2 (07:20→09:00)
--- NOTE | 2016-06-17 07:22 | EN ---
Date/Time of Note Date/Time of Note DATE: 06/17/16 TIME: 07:10 ER Progress Note RAPID RESPONSE TEAM: BRAKE RELINER called just before 7 am. On arrival, patient was sitting on commode and her was holding her up while the team arrived to help get her back into bed. She had become non-responsive, not waking up. She is POD #3 from a Right Total Hip and had a good Physical Therapy session the day before. Currently, her blood sugar is 138 and her BP is 75/52, pulse 73. She is placed back in bed and put into Trendelenburg. Her BP came up to 120/61. Her O2 Sat was 100% when placed on Mask at 5 LPM. She appears diaphoretic. Bolus 500 mL NS over 1 hour then to run at 100 mL/hr. Heart regular rhythm, normal rate, no murmur. Lungs cleat. Skin is cool and moist. Patient smiles at me. At this point, I have come up to talk with patient and she tells him she is tired. STAT EKG shows NSR at 70 BPM with a QS in III. No significant change from EKG done on . Troponin ordered STAT as well. Patient's Attending is notified of the situation by RN. No BP is 128/58, Pulse = 84, O2 Sat = 92% on 5 L via NC and she is lying flat. Bedrest ordered for now.. JOSE HOYOS DO Jun 17, 2016 07:22
[2016-06-17] MEDS: INSULIN ASPART [NOVOLOG] 3 ML PEN SC SCH ×3 (07:30→17:30)
[2016-06-17] MEDS: metFORMIN 500 MG TAB PO SCH (07:50)
--- NOTE | 2016-06-17 08:43 | CONS ---
Date/Time of Note Date/Time of Note DATE: 06/17/16 TIME: 08:29 Assessment/Plan Assessment/Plan Chief Complaint/Hosp Course #1 she is now 3 days postop a right total hip replacement. She is lethargic and I suspect this is due to a combination of medicines that she is taking. She is on medications for dementia and depression, and I think that she is encephalopathic from being over medicated. I will discontinue some of her medications including Seroquel and Lyrica for now. I will also check an arterial blood gas. She is on intravenous fluids. She will be monitored closely this morning. She has no focal neurologic deficits. #2 history of depression #3 asthma #4 type 2 diabetes mellitus #5 hypertension Problems: Consultation Date/Type/Reason Admit Date/Time Jun 14, 2016 at 05:50 Initial Consult Date 24 HR Interval Summary Free Text/Dictation Earlier this morning the patient was getting up with assistance to go to the commode. She became dizzy and her blood pressure dropped. The patient was taken back to the bed and a rapid response was called. The patient was made 500 mL bolus of normal saline. Her blood pressure increased. She was placed on oxygen. The patient is now lethargic but does arouse to verbal stimuli. Her is in the room and is able to translate as the patient only speaks Czech. The patient does not have any pain or shortness of breath. The patient is moving all extremities. The patient is on several different medications that could cause lethargy including Seroquel, Namenda, Aricept, Lyrica. Constitutional: no complaints Exam/Review of Systems Vital Signs Vitals Vital Signs Date Time Temp Pulse Resp B/P Pulse Ox O2 Delivery O2 Flow Rate FiO2 06/17/16 06:45 59 06/16/16 22:18 97.8 20 124/58 93 06/16/16 16:15 Nasal Cannula 2.0 Intake and Output 06/16/16 06/16/16 06/17/16 15:00 23:00 07:00 Intake Total 1300 ml 1120 ml Output Total 1100 ml 1250 ml Balance 200 ml -130 ml Exam She was lethargic but arouses easily and no she's in the hospital. Respiratory: clear to auscultation, normal air movement Cardiovascular: regular rate and rhythm Gastrointestinal: soft Extremities: normal pulses Neurological: [employer] II-XII intact, lethargic, nl strength Results Result Diagram: 06/17/16 0420 06/17/16 0420 Results 24 hrs Laboratory Tests Test 06/16/16 12:18 06/16/16 17:07 06/17/16 04:20 06/17/16 06:43 Bedside Glucose 107 139 138 Hemoglobin 10.7 L Hematocrit 31.6 L Sodium Level 138 Potassium Level 3.6 Chloride Level 99 Carbon Dioxide Level 30 Anion Gap 13 Blood Urea Nitrogen 16 Creatinine 0.95 Glucose Level 110 Calcium Level 9.0 Phosphorus Level 2.9 Magnesium Level 1.6 L Test 06/17/16 07:25 06/17/16 07:58 Troponin I 0.018 Bedside Glucose 137 Medications Medications Current Medications Miscellaneous Information 1 ea NOTE XX ; Start 06/14/16 at 05:00; Stop 06/18/16 at 04:59 Donepezil HCl (Aricept) 5 mg DAILY PO Last administered on 06/16/16 09:47; Admin Dose 5 MG; Start 06/15/16 at 09:00 Memantine (Namenda) 10 mg BID PO Last administered on 06/16/16 21:34; Admin Dose 10 MG; Start 06/14/16 at 21:00 Atorvastatin Calcium (Lipitor) 40 mg QHS PO Last administered on 06/16/16 21: 33; Admin Dose 40 MG; Start 06/14/16 at 21:00 Ondansetron HCl (Zofran Inj) 4 mg Q6H PRN IV NAUSEA AND/OR VOMITING Last administered on 06/15/16 10:14; Admin Dose 4 MG; Start 06/14/16 at 10:00 Bisacodyl (Dulcolax Supp) 10 mg Q12H PRN [place] CONSTIPATION; Start 06/14/16 at 10: 00 Magnesium Hydroxide (Milk Of Mag) 30 ml BID PRN PO CONSTIPATION; Start at 10:00 Sodium Biphosphate/ Sodium Phosphate (Fleet Enema) 133 ml DAILY PRN [place] CONSTIPATION; Start 06/14/16 at 10:00 Docusate Sodium (Colace) 100 mg BID PO Last administered on 06/16/16 21:32; Admin Dose 100 MG; Start 06/14/16 at 21:00 Diphenhydramine HCl (Benadryl) 25 mg Q6H PRN PO PRURITUS; Start 06/14/16 at 11: 13 Aspirin (Ecotrin) 325 mg BID PO Last administered on 06/16/16 21:32; Admin Dose 325 MG; Start 06/15/16 at 09:00 Pregabalin (Lyrica) 50 mg BID PO Last administered on 06/16/16 21:32; Admin Dose 50 MG; Start 06/14/16 at 21:00 Pantoprazole (Protonix Tab) 40 mg BID@18 PO Last administered on 06/16/16 18:27; Admin Dose 40 MG; Start 06/14/16 at 18:00 Nitrofurantoin Macrocrystals (Macrobid) 100 mg BID PO Last administered on 06/16 21:33; Admin Dose 100 MG; Start 06/14/16 at 21:00 Allopurinol (Zyloprim) 300 mg DAILY PO Last administered on 06/16/16 09:46; Admin Dose 300 MG; Start 06/15/16 at 09:00 Amlodipine Besylate (Norvasc) 2.5 mg BID PO Last administered on 06/16/16 21: 35; Admin Dose 2.5 MG; Start 06/14/16 at 13:30 Escitalopram Oxalate (Lexapro) 10 mg DAILY PO Last administered on 06/16/16 09 :46; Admin Dose 10 MG; Start 06/15/16 at 09:00 Miscellaneous Information 1 ea NOTE XX ; Start 06/14/16 at 13:30 Glucose (Glutose) 15 gm Q15M PRN PO DECREASED GLUCOSE; Start 06/14/16 at 13:30 Glucose (Glutose) 22.5 gm Q15M PRN PO DECREASED GLUCOSE; Start 06/14/16 at 13: 30 Dextrose (D50w Syringe) 25 ml Q15M PRN IV DECREASED GLUCOSE; Start 06/14/16 at 13:30 Dextrose (D50w Syringe) 50 ml Q15M PRN IV DECREASED GLUCOSE; Start 06/14/16 at 13:30 Glucagon (Glucagen) 1 mg Q15M PRN IM DECREASED GLUCOSE; Start 06/14/16 at 13:30 Glucose (Glutose) 15 gm Q15M PRN BUCCAL DECREASED GLUCOSE; Start 06/14/16 at 13 :30 Quetiapine Fumarate (Seroquel) 50 mg HS PO Last administered on 06/16/16 21:34 ; Admin Dose 50 MG; Start 06/16/16 at 21:00 Tramadol HCl (Ultram) 50 mg Q6 PRN PO PAIN Last administered on 06/16/16 21:34 ; Admin Dose 50 MG; Start 06/16/16 at 13:30 Atenolol (Tenormin) 25 mg DAILY PO ; Start 06/17/16 at 07:20 Prednisone (Prednisone) 5 mg DAILY PO ; Start 06/17/16 at 07:20 Propafenone HCl 150 mg 150 mg DAILY PO ; Start 06/17/16 at 07:20 Sodium Chloride 1,000 ml @ 125 mls/hr Q8H IV ; Start 06/17/16 at 08:00 Magnesium Sulfate (Magnesium Sulfate 2 Gm/50 ml) 50 ml @ 25 mls/hr ONCE ONCE IVPB ; Start 06/17/16 at 10:00; Stop 06/17/16 at 11:59 BETTY PENG MD Jun 17, 2016 08:39
[2016-06-17 08:50] LABS: AADO2 Arterial 84.7 mmHg (7.0-24.0); Allen Test ACCEPTAB; Arterial Base Excess 2.1 mmol/L (-3.0-3); Arterial COHb 0.3 % (0.0-3.0); Arterial Fraction of Oxyhgb 95.3 % (93.0-99.0); Arterial HCO3 26.4 mmol/L (22.0-26.0); Arterial MetHb 0.1 % (0.0-1.5); Arterial Total Hemglobin 11.7 g/dl (12.0-18.0); MODE NASAL CANNULA
[2016-06-17 09:00] VITALS: BP 124/65; PULSE 68; RESP 19
[2016-06-17] MEDS: AMLODIPINE 2.5 MG TAB PO SCH ×2 (09:00→21:00)
[2016-06-17] MEDS: ASPIRIN (EC) 325 MG TAB PO SCH ×2 (09:00→21:00)
[2016-06-17] MEDS: DONEPEZIL 5 MG TAB PO SCH (09:00)
[2016-06-17] MEDS: ESCITALOPRAM 10 MG TAB PO SCH (09:00)
[2016-06-17] MEDS: predniSONE 5 MG TAB PO SCH ×2 (09:00→09:14)
[2016-06-17] MEDS: DOCUSATE SODIUM 100 MG CAP PO SCH ×2 (09:00→21:00)
[2016-06-17] MEDS: ALLOPURINOL 300 MG TAB PO SCH (09:00)
[2016-06-17] MEDS: NITROFURANTOIN (SR) 100 MG CAP PO SCH ×2 (09:00→21:00)
[2016-06-17] MEDS: MEMANTINE 10 MG TAB PO SCH ×2 (09:00→21:00)
[2016-06-17] MEDS: PROPAFENONE 150 MG TAB PO SCH (09:13)
[2016-06-17] MEDS ORDERED: MAGNESIUM SULFATE 2 GM/50 ML 50 ML IVPB ONE (10:00)
--- NOTE | 2016-06-17 10:38 | PN ---
Date/Time of Note Date/Time of Note DATE: 06/17/16 TIME: 10:36 Assessment/Plan Lines/Catheters IV Catheter Type (from Nrsg): Peripheral IV Lr in Place (from Nrsg): No Assessment/Plan Assessment/Plan POD #3, s/p right anterior EBER -spoke with Dr. Malcolm who recommended holding off on all pain medication and antipsychotic -ASA/SCDs -OOB with PT -dressing changed -check AM labs -will likely go to SNF upon discharge, but will need to be more alert prior to transfer Subjective 24 Hr Interval Summary Patient continues to be lethargic overnight, likely from the pain medication. Code rapid response was called last night. Patient denies any significant hip pain and is making good progress with PT. VSS, afebrile. Exam/Review of Systems Vital Signs Vitals Vital Signs Date Time Temp Pulse Resp B/P Pulse Ox O2 Delivery O2 Flow Rate FiO2 06/17/16 06:45 59 06/16/16 22:18 97.8 20 124/58 93 06/16/16 16:15 Nasal Cannula 2.0 Intake and Output 06/16/16 06/16/16 06/17/16 15:00 23:00 07:00 Intake Total 1300 ml 1120 ml Output Total 1100 ml 1250 ml Balance 200 ml -130 ml Exam Free Text/Dictation Dressing dry Incision clean, dry, and intact without redness or drainage 5/5 Quadriceps, Tibialis Anterior, EHL, Gastroc, Soleus, Peroneals Normal sensation Palpable DT/PT, CR <2 sec No distal edema Results Result Diagram: 06/17/1641906/17/16419 DAISY HESTER PA-C Jun 17, 2016 10:38
[2016-06-17] MEDS: SOD CHLORIDE 0.9% 1,000 ML IV SCH ×3 (10:40→20:46)
[2016-06-17 12:30] VITALS: BP 128/74; PULSE 72; RESP 18
[2016-06-17] MEDS: ATORVASTATIN 40 MG TAB PO SCH (21:00)
[2016-06-18] MEDS: ACETAMINOPHEN 325 MG TAB PO PRN (02:53)
[2016-06-18] MEDS: PANTOPRAZOLE (EC) 40 MG TAB PO SCH ×2 (06:00→17:16)
[2016-06-18 07:00] VITALS: BP 142/68; RESP 20
[2016-06-18] MEDS: INSULIN ASPART [NOVOLOG] 3 ML PEN SC SCH ×3 (07:30→17:17)
[2016-06-18] MEDS: SOD CHLORIDE 0.9% 1,000 ML IV SCH ×3 (08:00→23:47)
[2016-06-18] MEDS: metFORMIN 500 MG TAB PO SCH (08:21)
[2016-06-18] MEDS: ALLOPURINOL 300 MG TAB PO SCH (08:21)
[2016-06-18] MEDS: PROPAFENONE 150 MG TAB PO SCH (08:21)
[2016-06-18] MEDS: ATENOLOL 25 MG TAB PO SCH (08:22)
[2016-06-18] MEDS: ASPIRIN (EC) 325 MG TAB PO SCH ×2 (08:23→20:58)
[2016-06-18] MEDS: DOCUSATE SODIUM 100 MG CAP PO SCH ×2 (08:24→21:00)
[2016-06-18] MEDS: ESCITALOPRAM 10 MG TAB PO SCH (08:24)
[2016-06-18] MEDS: MEMANTINE 10 MG TAB PO SCH ×2 (08:24→21:00)
[2016-06-18] MEDS: AMLODIPINE 2.5 MG TAB PO SCH ×2 (08:25→20:58)
[2016-06-18] MEDS: DONEPEZIL 5 MG TAB PO SCH (08:26)
[2016-06-18] MEDS: predniSONE 5 MG TAB PO SCH (08:29)
[2016-06-18] MEDS: NITROFURANTOIN (SR) 100 MG CAP PO SCH ×2 (09:43→21:11)
--- NOTE | 2016-06-18 10:25 | PN ---
Date/Time of Note Date/Time of Note DATE: 06/18/16 TIME: 10:24 Assessment/Plan Lines/Catheters IV Catheter Type (from Nrsg): Peripheral IV Lr in Place (from Nrsg): No Assessment/Plan Assessment/Plan POD # 4. Stable. -OOB with PT -Tylenol prn pain -ASA/SCDs -D/C to SNF tomorrow if doing well Subjective 24 Hr Interval Summary Doing better. Less pain and more alert. Taking Tylenol for pain only. Exam/Review of Systems Vital Signs Vitals Vital Signs Date Time Temp Pulse Resp B/P Pulse Ox O2 Delivery O2 Flow Rate FiO2 06/18/16 07:00 98.6 68 20 142/68 98 06/17/16 12:30 Nasal Cannula 2.0 Intake and Output 06/17/16 06/17/16 06/18/16 15:00 23:00 07:00 Intake Total 1760 ml 1980 ml Output Total 1100 ml 2200 ml Balance 660 ml -220 ml Exam Free Text/Dictation Dressing dry Incision clean, dry, and intact without redness or drainage Thigh soft 5/5 Quadriceps, Tibialis Anterior, EHL, Gastroc Soleus, Peroneals Normal sensation Palpable DP/PT, CR < 2 Sec No distal edema Results Result Diagram: 06/17/1641906/17/16419 JORDAN CHAMORRO MD Jun 18, 2016 10:25
--- NOTE | 2016-06-18 11:10 | CONS ---
Date/Time of Note Date/Time of Note DATE: 06/18/16 TIME: 11:02 Consult Date/Type/Reason Admit Date/Time Jun 14, 2016 at 05:50 Initial Consult Date 06/14/2016 Type of Consultation: Medicine Reason for Consultation Dementia, RA, MDD, DMII, HTN, lethargy Ordering Provider: JORDAN CHAMORRO MD Subjective Patient doing well this am. Pain is well controlled with tylenol only.Denies fevers, chills, nausea, vomiting, diarrhea, constipation, chest pain, sob, cough. interpreted for patient. Objective Vital Signs Date Time Temp Pulse Resp B/P Pulse Ox O2 Delivery O2 Flow Rate FiO2 06/18/16 07:00 98.6 68 20 142/68 98 06/17/16 12:30 Nasal Cannula 2.0 Intake and Output 06/17/16 06/17/16 06/18/16 15:00 23:00 07:00 Intake Total 1760 ml 1980 ml Output Total 1100 ml 2200 ml Balance 660 ml -220 ml Exam GEN-NAD HEENT-MMM, no scleral icterus CV-rrr, nml s1/s2, no m/r/g Pulm-CTAB, no w/r/r Abd-soft, nt, nd Ext-no c/c/e Results/Medications Result Diagram: 06/17/16 04206/17/16 0420 Results 24 hrs Laboratory Tests Test 06/17/16 11:51 06/17/16 17:22 06/18/16 08:20 Bedside Glucose 139 197 128 Medications Current Medications Donepezil HCl (Aricept) 5 mg DAILY PO Last administered on 06/16/16 09:47; Admin Dose 5 MG; Start 06/15/16 at 09:00 Memantine (Namenda) 10 mg BID PO Last administered on 06/16/16 21:34; Admin Dose 10 MG; Start 06/14/16 at 21:00 Atorvastatin Calcium (Lipitor) 40 mg QHS PO Last administered on 06/16/16 21: 33; Admin Dose 40 MG; Start 06/14/16 at 21:00 Ondansetron HCl (Zofran Inj) 4 mg Q6H PRN IV NAUSEA AND/OR VOMITING Last administered on 06/15/16 10:14; Admin Dose 4 MG; Start 06/14/16 at 10:00 Bisacodyl (Dulcolax Supp) 10 mg Q12H PRN [place] CONSTIPATION Last administered on 07:21; Admin Dose 10 MG; Start 06/14/16 at 10:00 Magnesium Hydroxide (Milk Of Mag) 30 ml BID PRN PO CONSTIPATION Last administered on 06/18/16 07:21; Admin Dose 30 ML; Start 06/14/16 at 10:00 Sodium Biphosphate/ Sodium Phosphate (Fleet Enema) 133 ml DAILY PRN [place] CONSTIPATION; Start 06/14/16 at 10:00 Docusate Sodium (Colace) 100 mg BID PO Last administered on 06/16/16 21:32; Admin Dose 100 MG; Start 06/14/16 at 21:00 Diphenhydramine HCl (Benadryl) 25 mg Q6H PRN PO PRURITUS; Start 06/14/16 at 11: 13 Aspirin (Ecotrin) 325 mg BID PO Last administered on 06/18/16 08:23; Admin Dose 325 MG; Start 06/15/16 at 09:00 Pantoprazole (Protonix Tab) 40 mg BID@06,18 PO Last administered on 06/17/16 17:06; Admin Dose 40 MG; Start 06/14/16 at 18:00 Nitrofurantoin Macrocrystals (Macrobid) 100 mg BID PO Last administered on 06/18 09:43; Admin Dose 100 MG; Start 06/14/16 at 21:00 Allopurinol (Zyloprim) 300 mg DAILY PO Last administered on 06/18/16 08:21; Admin Dose 300 MG; Start 06/15/16 at 09:00 Amlodipine Besylate (Norvasc) 2.5 mg BID PO Last administered on 06/16/16 21: 35; Admin Dose 2.5 MG; Start 06/14/16 at 13:30 Escitalopram Oxalate (Lexapro) 10 mg DAILY PO Last administered on 06/16/16 09 :46; Admin Dose 10 MG; Start 06/15/16 at 09:00 Miscellaneous Information 1 ea NOTE XX ; Start 06/14/16 at 13:30 Glucose (Glutose) 15 gm Q15M PRN PO DECREASED GLUCOSE; Start 06/14/16 at 13:30 Glucose (Glutose) 22.5 gm Q15M PRN PO DECREASED GLUCOSE; Start 06/14/16 at 13: 30 Dextrose (D50w Syringe) 25 ml Q15M PRN IV DECREASED GLUCOSE; Start 06/14/16 at 13:30 Dextrose (D50w Syringe) 50 ml Q15M PRN IV DECREASED GLUCOSE; Start 06/14/16 at 13:30 Glucagon (Glucagen) 1 mg Q15M PRN IM DECREASED GLUCOSE; Start 06/14/16 at 13:30 Glucose (Glutose) 15 gm Q15M PRN BUCCAL DECREASED GLUCOSE; Start 06/14/16 at 13 :30 Tramadol HCl (Ultram) 50 mg Q6 PRN PO PAIN Last administered on 06/16/16 21:34 ; Admin Dose 50 MG; Start 06/16/16 at 13:30 Atenolol (Tenormin) 25 mg DAILY PO Last administered on 06/18/16 08:22; Admin Dose 25 MG; Start 06/17/16 at 07:20 Prednisone (Prednisone) 5 mg DAILY PO Last administered on 06/18/16 08:29; Admin Dose 5 MG; Start 06/17/16 at 07:20 Propafenone HCl 150 mg 150 mg DAILY PO Last administered on 06/18/16 08:21; Admin Dose 150 MG; Start 06/17/16 at 07:20 Sodium Chloride (NS) 1,000 ml @ 125 mls/hr Q8H IV Last administered on 20:46; Admin Dose 125 MLS/HR; Start 06/17/16 at 08:00 Acetaminophen (Tylenol Tab) 650 mg Q4H PRN PO PAIN AND OR ELEVATED TEMP Last administered on 06/18/16 02:53; Admin Dose 650 MG; Start 06/18/16 at 03:00 Assessment/Plan Chief Complaint/Hosp Course 76 y/o female pmh Dementia, RA, MDD, DMII, HTN s/p R EBER 06/14. Course c/b lethargy/encephalopathy likely 2/2 seroquel/lyrica. Problems: Additional Assessment/Plan Ortho #s/p R EBER -ASA/SCD for DVT ppx -pain management with tylenol -continue PT Psych/Neuro #encephalopathy/delirium-resolved. Was likely potentiated by neuroleptics and opiates. -ctm -/nursing to continue to reorient. Natural light, avoid daytime napping. #MDD -lexapro #dementia -memantine -hold seroquel Rheum #RA -prednisone Endo #DMII-BG in appropriate range -metformin -sliding scale CV #HTN-well controlled -atenolol #HLD -atorva Dispo: Will stay one more day for better pain control. Otherwise medically cleared for DC to rehab. LINDEN SANDOVAL MD Jun 18, 2016 11:10
--- NOTE | 2016-06-18 13:37 | RADRPT ---
Vent Rate: 70 bpm RR Interval: 0 msec UT Interval: 174 msec QRS Duration: 98 msec QT Interval: 418 msec QTC Interval: 451 msec P-R-T [place]: 44 - 7 - 52 degrees Normal sinus rhythm Cannot rule out Anterior infarct , age undetermined Poor R wave progression Abnormal ECG Nonspecific ST-T changes No previous tracing available for comparison Electronically Signed By: Tomas Rodriguez [id number]
[2016-06-18 14:31] LABS: HEMATOCRIT 30.3 % (37.0-47.0); HEMOGLOBIN 10.3 g/dl (12.0-16.0)
[2016-06-18 14:38] LABS: POTASSIUM 4.3 mmol/L (3.5-5.1)
[2016-06-18 14:41] LABS: CREATININE 0.91 mg/dl (0.44-1.00)
[2016-06-18 14:42] LABS: CALCIUM 8.9 mg/dl (8.4-10.2)
[2016-06-18] MEDS ORDERED: QUETIAPINE 25 MG TAB PO PRN ×2 (16:30→21:00)
[2016-06-18 18:00] VITALS: BP 130/63; RESP 20
[2016-06-18] MEDS: ATORVASTATIN 40 MG TAB PO SCH (20:58)
[2016-06-19 06:24] LABS: HEMATOCRIT 30.8 % (37.0-47.0); HEMOGLOBIN 10.1 g/dl (12.0-16.0)
[2016-06-19 06:32] LABS: POTASSIUM 3.4 mmol/L (3.5-5.1)
[2016-06-19 06:34] LABS: CREATININE 0.76 mg/dl (0.44-1.00)
[2016-06-19 06:35] LABS: CALCIUM 8.7 mg/dl (8.4-10.2)
[2016-06-19] MEDS: PANTOPRAZOLE (EC) 40 MG TAB PO SCH (06:37)
[2016-06-19] MEDS: INSULIN ASPART [NOVOLOG] 3 ML PEN SC SCH ×2 (07:30→11:30)
[2016-06-19 07:55] VITALS: BP 129/60; RESP 20
[2016-06-19] MEDS: SOD CHLORIDE 0.9% 1,000 ML IV SCH (08:00)
[2016-06-19] MEDS ORDERED: POTASSIUM CHLORIDE (SR) 20 MEQ TAB PO STA (08:56)
[2016-06-19] MEDS: NITROFURANTOIN (SR) 100 MG CAP PO SCH ×2 (09:00→12:45)
[2016-06-19] MEDS: ASPIRIN (EC) 325 MG TAB PO SCH (09:07)
[2016-06-19] MEDS: ALLOPURINOL 300 MG TAB PO SCH (09:08)
[2016-06-19] MEDS: predniSONE 5 MG TAB PO SCH (09:08)
[2016-06-19] MEDS: ESCITALOPRAM 10 MG TAB PO SCH (09:08)
[2016-06-19] MEDS: DOCUSATE SODIUM 100 MG CAP PO SCH (09:08)
[2016-06-19] MEDS: MEMANTINE 10 MG TAB PO SCH (09:08)
[2016-06-19] MEDS: metFORMIN 500 MG TAB PO SCH (09:08)
[2016-06-19] MEDS: PROPAFENONE 150 MG TAB PO SCH (09:09)
[2016-06-19] MEDS: DONEPEZIL 5 MG TAB PO SCH (09:09)
[2016-06-19] MEDS: ATENOLOL 25 MG TAB PO SCH (09:10)
[2016-06-19] MEDS: AMLODIPINE 2.5 MG TAB PO SCH (09:10)
--- NOTE | 2016-06-19 10:18 | PN ---
Date/Time of Note Date/Time of Note DATE: 06/19/16 TIME: 10:17 Assessment/Plan Lines/Catheters IV Catheter Type (from Nrsg): Peripheral IV Lr in Place (from Nrsg): No Assessment/Plan Assessment/Plan POD # 5. Stable. -D/C to home -Home PT -Pain meds -ASA/SCDs -F/u with me in 1 week Subjective 24 Hr Interval Summary Doing well. Would rather go home today than go to SNF. Exam/Review of Systems Vital Signs Vitals Vital Signs Date Time Temp Pulse Resp B/P Pulse Ox O2 Delivery O2 Flow Rate FiO2 06/19/16 07:55 98.7 114 20 129/60 98 06/17/16 12:30 Nasal Cannula 2.0 Intake and Output 06/18/16 06/18/16 06/19/16 15:00 23:00 07:00 Intake Total 240 ml 1560 ml 850 ml Output Total 400 ml 800 ml Balance 240 ml 1160 ml 50 ml Exam Free Text/Dictation Dressing dry Incision clean, dry, and intact without redness or drainage Thigh soft 5/5 Quadriceps, Tibialis Anterior, EHL, Gastroc Soleus, Peroneals Normal sensation Palpable DP/PT, CR < 2 Sec No distal edema Results Result Diagram: 06/19/1644406/19/165 JORDAN CHAMORRO MD Jun 19, 2016 10:18
--- NOTE | 2016-06-19 10:22 | CONS ---
Date/Time of Note Date/Time of Note DATE: 06/19/16 TIME: 10:19 Consult Date/Type/Reason Admit Date/Time Jun 14, 2016 at 05:50 Initial Consult Date 06/14/2016 Type of Consultation: Medicine Reason for Consultation Dementia, RA, MDD, DMII, HTN Ordering Provider: JORDAN CHAMORRO MD Subjective Patient doing well this am. Pain is well controlled with tylenol only.Denies fevers, chills, nausea, vomiting, diarrhea, constipation, chest pain, sob, cough. interpreted for patient. Confusion and lethargy resolved. Objective Vital Signs Date Time Temp Pulse Resp B/P Pulse Ox O2 Delivery O2 Flow Rate FiO2 06/19/16 07:55 98.7 114 20 129/60 98 06/17/16 12:30 Nasal Cannula 2.0 Intake and Output 06/18/16 06/18/16 06/19/16 15:00 23:00 07:00 Intake Total 240 ml 1560 ml 850 ml Output Total 400 ml 800 ml Balance 240 ml 1160 ml 50 ml Exam GEN-NAD HEENT-MMM, no scleral icterus CV-rrr, nml s1/s2, III/ BRIANNA at base. Pulm-CTAB, no w/r/r Abd-soft, nt, nd Ext-no c/c/e Results/Medications Result Diagram: 06/19/165 06/19/16 0445 Results 24 hrs Laboratory Tests Test 06/18/16 12:09 06/18/16 12:49 06/18/16 14:20 06/18/16 17:16 Bedside Glucose 171 287 H 109 Hemoglobin 10.3 L Hematocrit 30.3 L Sodium Level 136 Potassium Level 4.3 Chloride Level 98 Carbon Dioxide Level 30 Anion Gap 12 Blood Urea Nitrogen 15 Creatinine 0.91 Glucose Level 117 Calcium Level 8.9 Test 06/19/16 04:45 06/19/16 08:11 Hemoglobin 10.1 L Hematocrit 30.8 L Sodium Level 133 L Potassium Level 3.4 L Chloride Level 95 L Carbon Dioxide Level 23 Anion Gap 18 H Blood Urea Nitrogen 18 Creatinine 0.76 Glucose Level 100 Calcium Level 8.7 Bedside Glucose 119 Medications Current Medications Donepezil HCl (Aricept) 5 mg DAILY PO Last administered on 06/19/16t 09:09; Admin Dose 5 MG; Start 06/15/16 at 09:00 Memantine (Namenda) 10 mg BID PO Last administered on 06/19/16 09:08; Admin Dose 10 MG; Start 06/14/16 at 21:00 Atorvastatin Calcium (Lipitor) 40 mg QHS PO Last administered on 06/18/16 20: 58; Admin Dose 40 MG; Start 06/14/16 at 21:00 Ondansetron HCl (Zofran Inj) 4 mg Q6H PRN IV NAUSEA AND/OR VOMITING Last administered on 06/15/16 10:14; Admin Dose 4 MG; Start 06/14/16 at 10:00 Bisacodyl (Dulcolax Supp) 10 mg Q12H PRN OR CONSTIPATION Last administered on 07:21; Admin Dose 10 MG; Start 06/14/16 at 10:00 Magnesium Hydroxide (Milk Of Mag) 30 ml BID PRN PO CONSTIPATION Last administered on 06/18/16 07:21; Admin Dose 30 ML; Start 06/14/16 at 10:00 Sodium Biphosphate/ Sodium Phosphate (Fleet Enema) 133 ml DAILY PRN OR CONSTIPATION; Start 06/14/16 at 10:00 Docusate Sodium (Colace) 100 mg BID PO Last administered on 06/19/16 09:08; Admin Dose 100 MG; Start 06/14/16 at 21:00 Diphenhydramine HCl (Benadryl) 25 mg Q6H PRN PO PRURITUS; Start 06/14/16 at 11: 13 Aspirin (Ecotrin) 325 mg BID PO Last administered on 06/19/16 09:07; Admin Dose 325 MG; Start 06/15/16 at 09:00 Pantoprazole (Protonix Tab) 40 mg BID@,18 PO Last administered on 06/19/16 06:37; Admin Dose 40 MG; Start 06/14/16 at 18:00 Nitrofurantoin Macrocrystals (Macrobid) 100 mg BID PO Last administered on 06/18 21:11; Admin Dose 100 MG; Start 06/14/16 at 21:00 Allopurinol (Zyloprim) 300 mg DAILY PO Last administered on 06/19/16 09:08; Admin Dose 300 MG; Start 06/15/16 at 09:00 Amlodipine Besylate (Norvasc) 2.5 mg BID PO Last administered on 06/19/16 09: 10; Admin Dose 2.5 MG; Start 06/14/16 at 13:30 Escitalopram Oxalate (Lexapro) 10 mg DAILY PO Last administered on 06/19/16 09 :08; Admin Dose 10 MG; Start 06/15/16 at 09:00 Miscellaneous Information 1 ea NOTE XX ; Start 06/14/16 at 13:30 Glucose (Glutose) 15 gm Q15M PRN PO DECREASED GLUCOSE; Start 06/14/16 at 13:30 Glucose (Glutose) 22.5 gm Q15M PRN PO DECREASED GLUCOSE; Start 06/14/16 at 13: 30 Dextrose (D50w Syringe) 25 ml Q15M PRN IV DECREASED GLUCOSE; Start 06/14/16 at 13:30 Dextrose (D50w Syringe) 50 ml Q15M PRN IV DECREASED GLUCOSE; Start 06/14/16 at 13:30 Glucagon (Glucagen) 1 mg Q15M PRN IM DECREASED GLUCOSE; Start 06/14/16 at 13:30 Glucose (Glutose) 15 gm Q15M PRN BUCCAL DECREASED GLUCOSE; Start 06/14/16 at 13 :30 Tramadol HCl (Ultram) 50 mg Q6 PRN PO PAIN Last administered on 06/16/16 21:34 ; Admin Dose 50 MG; Start 06/16/16 at 13:30 Atenolol (Tenormin) 25 mg DAILY PO Last administered on 06/19/16 09:10; Admin Dose 25 MG; Start 06/17/16 at 07:20 Prednisone (Prednisone) 5 mg DAILY PO Last administered on 06/19/16 09:08; Admin Dose 5 MG; Start 06/17/16 at 07:20 Propafenone HCl 150 mg 150 mg DAILY PO Last administered on 06/19/16 09:09; Admin Dose 150 MG; Start 06/17/16 at 07:20 Sodium Chloride (NS) 1,000 ml @ 125 mls/hr Q8H IV Last administered on 20:46; Admin Dose 125 MLS/HR; Start 06/17/16 at 08:00 Acetaminophen (Tylenol Tab) 650 mg Q4H PRN PO PAIN AND OR ELEVATED TEMP Last administered on 3/25/17at 02:53; Admin Dose 650 MG; Start 06/18/16 at 03:00 Quetiapine Fumarate (Seroquel) 25 mg QHS PRN PO INSOMNIA; Start 06/18/16 at 21: 00 Assessment/Plan Chief Complaint/Hosp Course 76 y/o female pmh Dementia, RA, MDD, DMII, HTN s/p R EBER 06/14. Course c/b lethargy/encephalopathy likely 2/2 seroquel/lyrica. Problems: Additional Assessment/Plan Ortho #s/p R EBER -ASA/SCD for DVT ppx -pain management with tylenol -continue PT Psych/Neuro #encephalopathy/delirium-resolved. Was likely potentiated by neuroleptics and opiates. -ctm -/nursing to continue to reorient. Natural light, avoid daytime napping. #MDD -lexapro #dementia -memantine -added back seroquel last night Rheum #RA -prednisone Endo #DMII-BG in appropriate range -metformin -sliding scale CV #HTN-well controlled -atenolol #HLD -atorva Dispo: Medically cleared for discharge home with home pt. LINDEN SANDOVAL MD Jun 19, 2016 10:22
--- NOTE | 2016-06-19 11:55 | RADRPT ---
Vent Rate: 67 bpm RR Interval: 0 msec OK Interval: 206 msec QRS Duration: 102 msec QT Interval: 422 msec QTC Interval: 445 msec P-R-T Bantry: 52 - 6 - 42 degrees Normal sinus rhythm with first degree block Prominent R-wave in V2 possible posterior infarct could not be excluded Borderline ECG Nonspecific ST-T changes No previous tracing available for comparison Electronically Signed By: Tomas Rodriguez [id number]
[2016-06-19] MEDS: ACETAMINOPHEN 325 MG TAB PO PRN (14:20)
--- NOTE | 2016-06-19 18:25 | DS ---
DATE OF ADMISSION: 06/14/2016 DATE OF DISCHARGE: 06/19/2016 ADMITTING DIAGNOSIS: Right hip osteoarthritis. FINAL DIAGNOSIS: Status post right anterior total hip arthroplasty. HOSPITAL COURSE: The patient was admitted and taken to the operating room where she underwent a rig ht anterior total hip arthroplasty. There were no complications. She tolerated the procedure well. She was taken to the recovery room in stable condition. She was given routine perioperative intra venous antibiotics. Her pain was controlled with oral pain medications. She was started on enteric -coated aspirin 325 mg twice daily for DVT prophylaxis. She was seen by physical therapy and educat ed on gait training and use of a front-wheel walker. The drain was removed on postoperative day 1 a nd the incision inspected and noted to be clean, dry and intact with no redness or drainage. She di d have some confusion on the first and second postoperative night which resolved with diminishing he r narcotic intake. By postoperative day 4 and 5, she was doing much better and she was back to her baseline mental status. She was educated on gait training and use of a front-wheel walker and did w ell ambulating with a walker independently. She was felt to be able to be discharged home. DISCHARGE CONDITION: Good. DISPOSITION: Home. DISCHARGE MEDICATIONS: She will continue with tramadol 25 mg 1 tab p.o. every 6 hours as needed for pain. Otherwise, she will take Tylenol for pain. She will continue with enteric-coated aspirin 32 5 mg twice daily for DVT prophylaxis. For the remainder of the medications, please refer to the [facility] ication reconciliation form. DISCHARGE INSTRUCTIONS: She should be weightbearing as tolerated on the right lower extremity. She should keep the incision dry. She will continue using a walker for ambulatory support. FOLLOWUP: She will follow up with me in the office in 1 week. Dictated By: JORDAN ROBLES/NTS Conf#: [id number] DID#: [id number]
== END 2016-06-19 14:45 | disposition home health service (06) | DRG 470 ==
LOC: REC 05:50 → MS1 11:05
PROVIDERS: ADMIT Orthopaedic Surgery; ATTEND Orthopaedic Surgery
PROC: 0SR904Z Replacement of Right Hip Joint with Ceramic on Polyethylene Synthetic Substitute, Open Approach (ICD-10-PCS; principal; 2016-06-14 07:00)
PROC: 30233N1 Transfusion of Nonautologous Red Blood Cells into Peripheral Vein, Percutaneous Approach (ICD-10-PCS; 2016-06-15)
DX: M16.11 Unilateral primary osteoarthritis, right hip (principal); N17.9 Acute kidney failure, unspecified; E11.9 Type 2 diabetes mellitus without complications; D64.9 Anemia, unspecified; I10 Essential (primary) hypertension; F32.9 Major depressive disorder, single episode, unspecified; J45.909 Unspecified asthma, uncomplicated; R41.0 Disorientation, unspecified
CPT/HCPCS: 36430; 36600; 72170; 73500; 73530; 80048; 81003; 82803; 82962; 83735; 84100; 84300; 84484; 85014; 85018; 86850; 86900; 86901; 86920; 87081; 87086; 88304; 88311; 93005; 97110; 97116; 97162; 97530; Z7610; C1776; C9290; J0131; J0171; J0690; J0697; J0735; J1100; J1815; J1885; J2001; J2250; J2274; J2405; J2710; J3010; J3370; J3475; J7030; J7050; J7120; J7512; P9016

== ENCOUNTER → 2016-06-24 | Outpatient (CLI) | payer MEDICARE, OTHER ==
[~2016-06-24] MED LIST changes: +ALLO300T2 PO; +AMLO1TAB12 PO; +ASPI325T32 PO; +ATEN1TAB3 PO; -BUPIVACAINE LIPOSOME/PF 266 MG/20 ML VIAL INFIL ONE; -CEFAZOLIN 2GM/50 ML (PMX) 50 ML X1 BEFORE INCISION IVPB ONE; -CELECOXIB 400 MG PO X1 DOSE PO ONE; +CRES10 PO; +DONE5TAB7 PO; +ESCI20TA PO; +ESOM40CA PO; -EXPAREL NOTE (BUPIVICAINE LIPOSOMAL) XX SCH; +FOLI-49 PO; +ICOS1CAP PO; +LUTE20CA PO; +MEMA28CA PO; +MET25 PO; +METF500T4 PO; -PAIN COCKTAIL-CEFUROXIME IRR ONE; +PRED5 PO; -PREGABALIN 300 MG PO X1 PO ONE; +PROP225T PO; +QUET50TA16 PO; +TRAM50TA2 PO; -TRANEXAMIC ACID 850 MG in SOD CHLORIDE 0.9% 100 ML IVPB ONE; -TRANEXAMIC ACID 850 MG in SOD CHLORIDE 0.9% 91.5 ML IV ONE; -oxyCODONE (CR) 10 MG TAB [oxyCONTIN] X1 DOSE PO ONE; -traMADOL 50 MG TAB X 1 DOSE PO ONE
--- NOTE | 2016-06-24 11:40 | RADRPT ---
PROCEDURE: XR Pelvis. CLINICAL INDICATION: Hip pain TECHNIQUE: Single AP view performed. COMPARISON: 06/14/2016 FINDINGS: There is a right total hip replacement. There is no evidence of loosening of the prosthesis. No hard russ failure is identified. There is moderate left hip osteoarthrosis. This is associated with joint space narrowing, subchondra l sclerosis and osteophytosis. There is normal osseous mineralization. No fractures or osseous les ions are identified. The soft tissues are unremarkable. IMPRESSION: Right total hip replacement. Moderate left hip osteoarthrosis. RPTAT: HGDB .Cholo Rueda MD, Date Time Electronically viewed and signed by .Cholo Rueda MD, on 06/24/2016 11:40 .B/
--- NOTE | 2016-06-24 11:41 | RADRPT ---
PROCEDURE: XR right hip. CLINICAL INDICATION: Hip pain TECHNIQUE: AP view available for review. COMPARISON: 06/14/2016 FINDINGS: There is a right total hip replacement. There is no evidence of loosening of the prosthesis. There i s no evidence of hardware failure. There is normal mineralization, architecture and alignment. No f ractures are identified. No osseous lesions are present. The joints are unremarkable. The soft ti ssues are unremarkable. There are skin art lateral to the right hip. IMPRESSION: Right total hip replacement Otherwise an unremarkable examination RPTAT: HGDB .Cholo Rueda MD, Date Time Electronically viewed and signed by .Cholo Rueda MD, on 06/24/2016 11:41 .B/
--- NOTE | 2016-06-24 13:13 | HKNOTE ---
DATE OF SERVICE: 06/24/2016 INTERVAL HISTORY: The patient presents today for her first postoperative evaluation. She is 10 days status post right anterior total hip arthroplasty. She is doing well overall. She is much more alert today than in the hospital. She has not been taking much medication. She has been using tramadol and Tylenol for pain only. She is here with her daughter translating. She has been taking aspirin twice daily for DVT prophylaxis. She denies any fevers or chills. She is complaining about pain. Presents today for first postoperative evaluation. PHYSICAL EXAMINATION: Today, she is alert and oriented x4 and in no acute distress. Exam of the incision demonstrates to be clean, dry and intact. She is walking with a front-wheeled walker. There is no erythema or warmth noted. The incision is clean, dry and intact. Homans sign is negative. Compartments are soft. She is neurovascularly intact distally. IMAGING: X-rays of the right hip are obtained today and reviewed by me. They demonstrate good anatomic alignment with no fracture or dislocation identified. There are postsurgical changes with a new right total hip noted. ASSESSMENT: Ten days status post right anterior total hip arthroplasty, doing well. PLAN: The art were removed today and Steri-Strips were applied. She is to continue home physical therapy. She is to continue aspirin twice daily for 6 weeks for DVT prophylaxis. She is to ambulate with a front-wheel walker and transition to a cane as tolerated. We will see her back in 4 weeks for repeat evaluation. She is to call the office in the meantime if there are any concerns. Dictated By: DAISY GONZALEZ for JORDAN JOHN/DEANNA Conf#: [id number] DID#: [id number] MTDD
== END | disposition home or self-care (01) ==
LOC: HKI 10:13
PROVIDERS: ATTEND Orthopaedic Surgery
DX: Z47.1 Aftercare following joint replacement surgery (principal); Z96.641 Presence of right artificial hip joint; M16.12 Unilateral primary osteoarthritis, left hip
CPT/HCPCS: 72170; 73501

== ENCOUNTER → 2016-07-20 | Outpatient (CLI) | payer MEDICARE, OTHER ==
--- NOTE | 2016-07-20 12:58 | RADRPT ---
PROCEDURE: XR AP pelvis/right hip. CLINICAL INDICATION: Hip pain TECHNIQUE: AP pelvis/lateral right hip view available for review. COMPARISON: 06/24/2016 FINDINGS: There is a right total hip replacement. There is no evidence of loosening of the prosthesis. No hard russ failure is identified. There is moderate left hip osteoarthrosis. This is associated with joint space narrowing, subchondra l sclerosis and osteophytosis. There is normal osseous mineralization. No fractures or osseous lesio ns are identified. The soft tissues are unremarkable. IMPRESSION: Right total hip replacement. Moderate left hip osteoarthrosis. Unchanged from the previous examination RPTAT: HGDB .Cholo Rueda MD, MD Date Time Electronically viewed and signed by .Cholo Rueda MD, on 07/20/2016 12:58 .B/
== END | disposition home or self-care (01) ==
LOC: HKI 10:39
PROVIDERS: ATTEND Orthopaedic Surgery
DX: Z47.1 Aftercare following joint replacement surgery (principal); Z96.641 Presence of right artificial hip joint
CPT/HCPCS: 73502